=== PATIENT | female | born 1950 | race Caucasian/White ===

== ENCOUNTER → 2018-06-07 | Outpatient (CLI) | payer BC ==
--- NOTE | 2018-06-08 13:01 | MM ---
Reason for exam: screening (asymptomatic). Last mammogram was performed 1 year and 3 months ago. History: Patient is postmenopausal. Benign excisional biopsy of the left breast, 1979. Took estrogen for 4 years beginning at age 56. Took progesterone for 4 years beginning at age 56. Physical Findings: A clinical breast exam by your physician is recommended on an annual basis and results should be correlated with mammographic findings. MG Screening Mammo w CAD Bilateral CC and MLO view(s) were taken. Prior study comparison: March 10, 2017, bilateral MG screening mammo w CAD. February 27, 2016, bilateral MG screening mammo w CAD. The breast tissue is heterogeneously dense. This may lower the sensitivity of mammography. There is no discrete abnormality. No significant changes when compared with prior studies. ASSESSMENT: Negative, BI-RAD 1 RECOMMENDATION: Routine screening mammogram of both breasts in 1 year.
== END | disposition home or self-care (01) ==
LOC: RADMAMWWP 13:25
PROVIDERS: ATTEND Obstetrics & Gynecology
DX: Z12.31 Encounter for screening mammogram for malignant neoplasm of breast (principal)
CPT/HCPCS: 77067

== ENCOUNTER → 2019-07-17 | Outpatient (CLI) | payer BC ==
--- NOTE | 2019-07-18 10:58 | MM ---
Reason for exam: screening (asymptomatic). Last mammogram was performed 1 year and 1 month ago. History: Patient is postmenopausal. Benign excisional biopsy of the left breast, 1979. Took hormonal contraceptives for 3 years. Took estrogen for 4 years beginning at age 56. Took progesterone for 4 years beginning at age 56. Physical Findings: A clinical breast exam by your physician is recommended on an annual basis and results should be correlated with mammographic findings. MG Screening Mammo w CAD Bilateral CC and MLO view(s) were taken. Prior study comparison: June 07, 2018, bilateral MG screening mammo w CAD. March 10, 2017, bilateral MG screening mammo w CAD. The breast tissue is heterogeneously dense. This may lower the sensitivity of mammography. No significant changes when compared with prior studies. ASSESSMENT: Negative, BI-RAD 1 RECOMMENDATION: Routine screening mammogram of both breasts in 1 year.
== END | disposition home or self-care (01) ==
LOC: RADMAMWWP 09:08
PROVIDERS: ATTEND Obstetrics & Gynecology
DX: Z12.31 Encounter for screening mammogram for malignant neoplasm of breast (principal)
CPT/HCPCS: 77067

== ENCOUNTER → 2019-12-31 | Outpatient (CLI) | payer BC ==
--- NOTE | 2019-12-31 13:02 | BD ---
EXAMINATION TYPE: Axial Bone Density DATE OF EXAM: 12/31/2019 COMPARISON: NONE CLINICAL HISTORY: Height: 5 FT 1 1/4 IN Weight: 127 FRAX RISK QUESTIONS: Alcohol (3 or more units per day): NO Family History (Parent hip fracture): NO Glucocorticoids (More than 3mos): NO (Ex: prednisone, prednisolone, methylprednisolone, dexamethasone, and hydrocortisone). History of Fracture in Adulthood: NO Secondary Osteoporosis: 1. Type 1 Diabetes: NO 2. Hyperthyroidism: NO 3. Menopause before 45: NO 4. Malnutrition: NO 5. Chronic liver disease: NO Rheumatoid Arthritis: NO Current Tobacco Use: NO RISK FACTORS HISTORY OF: Family History of Osteoporosis: YES Active: YES Postmenopausal woman: AGE 57 Take estrogen and/or progesterone medications: TOOK HRT FOR AROUND ONE YEAR AROUND AGE 57 NO LONGER MEDICATIONS: Thyroid Medications: YES Which medication: SYNTHROID How Lon-10 YEARS Additional Medications: SYNTHROID, MOBIC, METOPROLOL, CITALOPRAM, CYCLOBENZAPINE, ZOLPIDEM, Additional History: HISTORY OF LOW BACK PAIN AND HIP PAIN EXAM MEASUREMENTS: Bone mineral densitometry was performed using the [employer] System. Bone mineral density as measured about the Lumbar spine is: ----- L1-L4(G/cm2): 1.020 T Score Values are as follows: ----- L2: -2.1 ----- L3: -1.0 ----- L4: -0.3 ----- L1-L4: -1.3 Bone mineral density has: DECREASED -6.4 % since study of: 2014 Bone mineral density about the R hip (g/cm2): 0.937 Bone mineral density about the L hip (g/cm2): 0.834 T Score values are as follows: -----R Neck: -0.7 -----L Neck: -1.5 -----R Total: -0.7 -----L Total: -1.0 Bone mineral density has: DECREASED -0.7 % since study of: 2014 IMPRESSION: Osteopenia. NOTE: T-SCORE=SD OF THE YOUNG ADULT MEAN.
== END | disposition home or self-care (01) ==
LOC: RADBDWWP 10:02
PROVIDERS: ATTEND Obstetrics & Gynecology
DX: M85.80 Other specified disorders of bone density and structure, unspecified site (principal)
CPT/HCPCS: 77080

== ENCOUNTER → 2020-09-23 | Outpatient (CLI) | payer BC ==
--- NOTE | 2020-09-25 10:53 | MM ---
Reason for exam: screening (asymptomatic). Last mammogram was performed 1 year and 2 months ago. History: Patient is postmenopausal. Benign excisional biopsy of the left breast, 1979. Took hormonal contraceptives for 3 years. Took estrogen for 4 years beginning at age 56. Took progesterone for 4 years beginning at age 56. Physical Findings: A clinical breast exam by your physician is recommended on an annual basis and results should be correlated with mammographic findings. MG Screening Mammo w CAD Bilateral CC and MLO view(s) were taken. Prior study comparison: July 17, 2019, bilateral MG screening mammo w CAD. June 07, 2018, bilateral MG screening mammo w CAD. The breast tissue is heterogeneously dense. This may lower the sensitivity of mammography. No significant changes when compared with prior studies. ASSESSMENT: Negative, BI-RAD 1 RECOMMENDATION: Routine screening mammogram of both breasts in 1 year.
== END | disposition home or self-care (01) ==
LOC: RADMAMWWP 14:32
PROVIDERS: ATTEND Obstetrics & Gynecology
DX: Z12.31 Encounter for screening mammogram for malignant neoplasm of breast (principal); Z78.0 Asymptomatic menopausal state
CPT/HCPCS: 77067

== ENCOUNTER → 2021-10-02 | Outpatient (CLI) | payer MEDICARE ==
--- NOTE | 2021-10-07 09:37 | MM ---
Reason for exam: screening (asymptomatic). Last mammogram was performed 1 year ago. History: Patient is postmenopausal. Benign excisional biopsy of the left breast, 1979. Took hormonal contraceptives for 3 years. Took estrogen for 4 years beginning at age 56. Took progesterone for 4 years beginning at age 56. Physical Findings: A clinical breast exam by your physician is recommended on an annual basis and results should be correlated with mammographic findings. MG Screening Mammo w CAD Bilateral CC, MLO, and XCCL view(s) were taken. Prior study comparison: September 23, 2020, bilateral MG screening mammo w CAD. July 17, 2019, bilateral MG screening mammo w CAD. There are scattered fibroglandular densities. No significant changes when compared with prior studies. ASSESSMENT: Benign, BI-RAD 2 RECOMMENDATION: Routine screening mammogram of both breasts in 1 year.
== END | disposition home or self-care (01) ==
LOC: RADMAMWWP 16:25
PROVIDERS: ATTEND Obstetrics & Gynecology
DX: Z12.31 Encounter for screening mammogram for malignant neoplasm of breast (principal); Z78.0 Asymptomatic menopausal state
CPT/HCPCS: 77067

== ENCOUNTER → 2022-04-16 | Outpatient (CLI) | payer MEDICARE ==
--- NOTE | 2022-04-16 12:24 | US ---
EXAMINATION TYPE: US transvaginal DATE OF EXAM: 04/16/2022 COMPARISON: NONE CLINICAL HISTORY: N93.9 Abn vaginal bleeding. TECHNIQUE: Transvaginal (TV). Date of LMP: post menopausal, no HRT. EXAM MEASUREMENTS: Uterus: 5.0 x 2.3 x 3.4 cm Endometrial Stripe: 0.3 cm Right Ovary: not identified Left Ovary: not identified 1. Uterus: Anteverted wnl 2. Endometrium: wnl 3. Right Ovary: not identified 4. Left Ovary: not identified 5. Bilateral Adnexa: wnl 6. Posterior cul-de-sac: no free fluid IMPRESSION: 1. No evidence for acute process. 2. Endometrium within normal limits for thickness. 3.
== END | disposition home or self-care (01) ==
LOC: RADUSWWP 11:58
PROVIDERS: ATTEND Family Medicine
DX: N93.9 Abnormal uterine and vaginal bleeding, unspecified (principal)
CPT/HCPCS: 76830

== ENCOUNTER → 2022-10-04 | Outpatient (CLI) | payer MEDICARE ==
--- NOTE | 2022-10-04 15:15 | BD ---
EXAMINATION TYPE: Axial Bone Density DATE OF EXAM: 10/04/2022 CLINICAL HISTORY: 72 years old Female. ICD-10 CODE: M85.88 SCREENING Height: 61 in Weight: 135 lbs RISK FACTORS HISTORY OF: Family History of Osteoporosis: yes mother and father Active: yes Diet low in dairy products/other sources of calcium: yes Postmenopausal woman: age 53 Take estrogen and/or progesterone medications: not now How long: took for 9 months MEDICATIONS: Thyroid Medications: yes Which medication: Synthroid How Lon+ years Additional Medications: calcium, vit d, blood pressure meds, hair loss meds, anxiety meds, EXAM MEASUREMENTS: Bone mineral densitometry was performed using the [employer] System. Bone mineral density as measured about the Lumbar spine is: ----- L1-L4(G/cm2): 1.056 T Score Values are as follows: ----- L1: -1.6 ----- L2: -2.2 ----- L3: -0.9 ----- L4: 0.2 ----- L1-L4: -1.0 Z Score Values are as follows: ----- L1: 0.2 ----- L2: -0.4 ----- L3: 0.9 ----- L4: 2.0 ----- L1-L4: 0.8 Bone mineral density has: Increased 3.5% since study of: 12/31/2019 Bone mineral density about the R hip (g/cm2): 0.919 Bone mineral density about the L hip (g/cm2): 0861 T Score values are as follows: -----R Neck: -0.9 -----L Neck: -1.4 -----R Total: -0.7 -----L Total: -1.2 Z Score values are as follows: -----R Neck: 0.9 -----L Neck: 0.4 -----R Total: 0.9 -----L Total: 0.4 Bone mineral density has: Decreased -1.0% since study of: 12/31/2019 FRAX%s: The graph provided illustrates a 10.0% chance for a major osteoporotic fx and a 1.4% chance f or the hips probability for fx in 10 years time. IMPRESSION: Osteopenia (T Score between -2.5 and -1). There is slightly increased risk of fracture and the patient may be considered for treatment. Re-Screen 2-5 years. NOTE: T-SCORE=SD OF THE YOUNG ADULT MEAN.
--- NOTE | 2022-10-05 06:43 | MM ---
Reason for Exam: Screening (asymptomatic). Last screening mammogram was performed 12 month(s) ago. Patient History: Menarche at age 16. First Full-Term at age 27. Postmenopausal. Estrogen for 4 years from age 56 until age 60. Progesterone for 4 years from age 56 until age 60. Patient used Hormonal Contraceptives for 3 years. 1979, Benign Excisional Biopsy on the left side. Risk Values: Deyanira 5 year model risk: 2.1%. NCI Lifetime model risk: 6.0%. Prior Study Comparison: 07/17/2019 Bilateral Screening Mammogram, [facility]. 09/23/2020 Bilateral Screening Mammogram, [facility]. 10/02/2021 Bilateral Screening Mammogram, [facility]. Tissue Density: The breast tissue is heterogeneously dense. This may lower the sensitivity of mammography. Findings: Analyzed By CAD. There is no suspicious group of microcalcifications or new suspicious mass in either breast. Overall Assessment: Negative, BI-RAD 1 Management: Screening Mammogram of both breasts in 1 year. A clinical breast exam by your physician is recommended on an annual basis and results should be correlated with mammographic findings. Electronically signed and approved by: Lb Clifford M.D.
== END | disposition home or self-care (01) ==
LOC: RADBDWWP 12:33
PROVIDERS: ATTEND Obstetrics & Gynecology
DX: Z12.31 Encounter for screening mammogram for malignant neoplasm of breast (principal); M85.89 Other specified disorders of bone density and structure, multiple sites; Z78.0 Asymptomatic menopausal state
CPT/HCPCS: 77067; 77080

== ENCOUNTER → 2023-10-11 | Outpatient (CLI) | payer MEDICARE ==
--- NOTE | 2023-10-13 13:35 | MM ---
Reason for Exam: Screening (asymptomatic). Last screening mammogram was performed 12 month(s) ago. Patient History: Menarche at age 16. First Full-Term at age 27. Postmenopausal. Estrogen for 4 years from age 56 until age 60. Progesterone for 4 years from age 56 until age 60. Patient used Hormonal Contraceptives for 3 years. 1979, Benign Excisional Biopsy on the left side. Risk Values: Deyanira 5 year model risk: 2.1%. NCI Lifetime model risk: 5.8%. Prior Study Comparison: 09/23/2020 Bilateral Screening Mammogram, [facility]. 10/02/2021 Bilateral Screening Mammogram, [facility]. 10/04/2022 Bilateral MG screening mammo w CAD, [facility]. Tissue Density: There are scattered areas of fibroglandular density. Findings: Analyzed By CAD. There is no suspicious group of microcalcifications or new suspicious mass in either breast. Overall Assessment: Negative, BI-RAD 1 Management: Screening Mammogram of both breasts in 1 year. . Patient should continue monthly self-breast exams. A clinical breast exam by your physician is recommended on an annual basis. This exam should not preclude additional follow-up of suspicious palpable abnormalities. Note on Deyanira scores and lifetime risk: 1. A Deyanira score greater than 3% is considered moderate risk. If this is the case, consider specialist referral to assess eligibility for a risk reducing agent. 2. If overall lifetime risk for the development of breast cancer is 20% or higher, the patient may qualify for future screening with alternating mammogram and breast MRI. Electronically signed and approved by: Juan Pablo Magana M.D. Radiologis
== END | disposition home or self-care (01) ==
LOC: RADMAMWWP 12:20
PROVIDERS: ATTEND Family Medicine
DX: Z12.31 Encounter for screening mammogram for malignant neoplasm of breast (principal); Z78.0 Asymptomatic menopausal state
CPT/HCPCS: 77067

== ENCOUNTER → 2023-12-05 | Outpatient (CLI) | payer MEDICARE ==
--- NOTE | 2023-12-05 21:29 | CT ---
EXAMINATION TYPE: CT sinus wo con DATE OF EXAM: 12/05/2023 COMPARISON: None HISTORY: chronic sinusitis CT DLP: 603.0 mGycm CONTRAST: 0 mL of Isovue 300 The paranasal sinuses are examined in the axial plane at 2 mm thick sections. Reconstructed images i n the coronal plane were obtained. There is dental amalgam scatter artifact The maxillary sinuses are clear. The ethmoid air cells are clear. The sphenoid sinuses are clear. The frontal sinuses are aplastic. The septum is evaluated. There is septal deviation to the right. The ostiomeatal units are patent. IMPRESSION: 1. No acute or chronic paranasal sinus abnormality. 2. Right septal deviation.
== END | disposition home or self-care (01) ==
LOC: RADCTMAIN 09:18
PROVIDERS: ATTEND Family Medicine
DX: J34.2 Deviated nasal septum (principal); J32.9 Chronic sinusitis, unspecified
CPT/HCPCS: 70486